=== PATIENT | male | born 1935 | race Caucasian/White ===

== ENCOUNTER → 2016-12-20 | Outpatient (CLI) | payer OTHER ==
[~2016-12-20] MED LIST: ALBU18002 INH; ASPEC325 PO; ASPI81TA28 PO; ATOR-26 PO; CALC600T9 PO; CLIN300C2 PO; DOCU100C31 PO; FLUT1INH INH; FNTTP75 TOP; GABA-112 PO; HYDR-3983 PO; HYDR12.55 PO; LAMO25TA PO; MAGN84TA PO; PANT40TA PO; POTA1POW PO; SPRIN/30 INH
[2016-12-20 13:20] LABS: ALT/SGPT 18 U/L (12-78); AST/SGOT 14 U/L (15-37); BLOOD UREA NITROGEN 21 mg/dl (7-18); BUN/CREATININE RATIO 25.1 (10-20); CARBON DIOXIDE 31 mmol/L (21-32); CHLORIDE 101 mmol/L (98-107); CHOLESTEROL 110 mg/dl (0-200); CREATININE 0.82 mg/dl (0.60-1.40); GLUCOSE 106 mg/dl (70-99); MAGNESIUM 2.2 mg/dl (1.8-2.4); POTASSIUM 3.8 mmol/L (3.5-5.1); SODIUM 138 mmol/L (136-145)
[2016-12-20 13:23] LABS: CHOLESTEROL/HDL RATIO 2.7; HDL CHOLESTEROL 41 mg/dl; LDL CHOLESTEROL CALCULATED 55 mg/dl; TRIGLYCERIDES 71 mg/dl (0-150); VERY LOW DENSITY LIPOPROT CALC 14 mg/dl
[2016-12-20 13:24] LABS: CALCIUM 9.2 mg/dl (8.5-10.1)
== END | disposition home or self-care (01) ==
LOC: C.LABMFLN 08:49
PROVIDERS: ATTEND Family Medicine
DX: I10 Essential (primary) hypertension (principal); E78.00 Pure hypercholesterolemia, unspecified; G40.909 Epilepsy, unspecified, not intractable, without status epilepticus; E83.42 Hypomagnesemia

== ENCOUNTER → 2017-02-06 | Outpatient (CLI) | payer OTHER ==
[~2017-02-06] VITALS: Ht 167.6 cm; Wt 92.7 kg
[~2017-02-06] MED LIST changes: +LACTATED RINGER'S 1000ML 1,000 ML IV SCH
[2017-02-06 10:54] VITALS: Ht 167.6 cm; Wt 92.7 kg
--- NOTE | 2017-02-06 11:44 | PAT Medication Instructions ---
Service Date Feb 06, 2017. Current Home Medication List Albuterol Sulfate (Proair Respiclick), 1-2 PUFFS INH Q4-6H Aspirin (Aspirin Ec), 81 MG PO QAM Atorvastatin (Lipitor), 80 MG PO HS Calcium Carbonate-Vitamin D (Calcium + D), 1 TAB PO BID Clindamycin Hcl (Cleocin), 600 MG PO UD Docusate Sodium (Docusate Sodium), 1 CAP PO HS Fentanyl (Fentanyl), 1 DOSE TOP Q2D Fluticasone Furoate-Vilanterol (Breo Ellipta), 1 PUFF INH HS Gabapentin (Neurontin), 100 MG PO TID Hydrochlorothiazide (Hydrochlorothiazide), 1 TAB PO QAM Hydrocodone/Acetaminophen 7.5MG/325MG ([place] 7.5MG/325MG), 1-2 TAB PO Q6H Lamotrigine (Lamictal), 50 MG PO BID Magnesium Lactate (Mag-Tab Sr), 1 TAB PO BID Pantoprazole (Protonix), 40 MG PO QAM Potassium Chloride Pwd (Klor-Con Pwd), 20 MEQ PO BID Tiotropium [place] (Spiriva Handihaler), 1 CAP INH QAM Medication Instructions For Your Scheduled Surgery Clindamycin Hcl (Cleocin), 600 MG PO UD (prior to dental procedures only) Fentanyl (Fentanyl), 1 DOSE TOP Q2D (avoid surgery site for patch placement prior to surgery) - Hold the following medications the morning of surgery: Potassium Chloride Pwd (Klor-Con Pwd), 20 MEQ PO BID Magnesium Lactate (Mag-Tab Sr), 1 TAB PO BID Hydrochlorothiazide (Hydrochlorothiazide), 1 TAB PO QAM Calcium Carbonate-Vitamin D (Calcium + D), 1 TAB PO BID - Take the following medications the morning of surgery with a sip of water: Tiotropium [place] (Spiriva Handihaler), 1 CAP INH QAM Pantoprazole (Protonix), 40 MG PO QAM Lamotrigine (Lamictal), 50 MG PO BID Gabapentin (Neurontin), 100 MG PO TID Albuterol Sulfate (Proair Respiclick), 1-2 PUFFS INH Q4-6H (bring with you to hospital morning of surgery; use if needed) Aspirin (Aspirin Ec), 81 MG PO QAM Hydrocodone/Acetaminophen 7.5MG/325MG ([place] 7.5MG/325MG), 1-2 TAB PO Q6H (okay to take up to 4 hours prior to surgery if needed) - Take the following medications as scheduled the night before surgery: Potassium Chloride Pwd (Klor-Con Pwd), 20 MEQ PO BID Magnesium Lactate (Mag-Tab Sr), 1 TAB PO BID Lamotrigine (Lamictal), 50 MG PO BID Gabapentin (Neurontin), 100 MG PO TID Fluticasone Furoate-Vilanterol (Breo Ellipta), 1 PUFF INH HS Docusate Sodium (Docusate Sodium), 1 CAP PO HS Calcium Carbonate-Vitamin D (Calcium + D), 1 TAB PO BID Atorvastatin (Lipitor), 80 MG PO HS Albuterol Sulfate (Proair Respiclick), 1-2 PUFFS INH Q4-6H (if needed) Hydrocodone/Acetaminophen 7.5MG/325MG ([place] 7.5MG/325MG), 1-2 TAB PO Q6H (if needed) If you have any questions please call us at [phone] or [phone] or [phone]
[2017-02-06 12:14] LABS: URINE APPEARANCE CLEAR (CLEAR); URINE BILIRUBIN NEG (NEG); URINE COLOR YELLOW; URINE NITRITE NEG (NEG); URINE PH 5.5 (4.5-7.5); UROBILINOGEN NEG (NEG); ZZUR CULT IF INDIC CLEAN CATCH NO
[2017-02-06 12:19] LABS: MANUAL MICROSCOPIC REQUIRED? NO; REVIEW REQ? NO
[2017-02-06 12:24] LABS: BASO % 0.3 %; BASO ABS # 0.02 K/uL (0-0.2); COMPLETE YES; EOS % 0.9 %; HEMATOCRIT 42.1 % (42-52); IG% 0.1 %; LYMPH % 20.5 %; LYMPH ABS # 1.53 K/uL (1.2-3.4); MEAN CELL VOLUME 93.3 fL (80-100); MEAN CORPUSCULAR HEMOGLOBIN 31.3 pg (25-34); MEAN CORPUSCULAR HGB CONC 33.5 g/dl (32-36); MEAN PLATELET VOLUME 9.8 fL (7.4-10.4); MONO % 10.8 %; NEUT % 67.4 %; PLATELET COUNT 222 K/uL (130-400); RED BLOOD COUNT 4.51 M/uL (4.7-6.1); WHITE BLOOD COUNT 7.48 K/uL (4.8-10.8)
[2017-02-06 12:30] LABS: PARTIAL THROMBOPLASTIN RATIO 1.1; PROTHROMBIN TIME (PATIENT) 10.7 SECONDS (9.0-12.0)
[2017-02-06 12:35] LABS: BUN/CREATININE RATIO 20.4 (10-20); CALCIUM 8.9 mg/dl (8.5-10.1); CREATININE 0.86 mg/dl (0.60-1.40)
--- NOTE | 2017-02-11 15:02 | HISTORY & PHYSICAL EXAMINATION ---
DATE OF ADMISSION: 02/24/2017 CHIEF COMPLAINT: Left hip pain. HISTORY OF PRESENT ILLNESS: Mr. Myrick is an 81-year-old male with a 1-1/2-year history of left hip pain. The patient rates his pain an 8/10. He has pain with his daily activities. He has limited standing and walking tolerance. Pain is worse with weightbearing. The patient ambulates with a cane. He has been taking narcotics with minimal relief. He has failed conservative treatment and is scheduled for left hip replacement. PAST MEDICAL HISTORY: Hypercholesterolemia, COPD, seizure disorder, acid reflux, aortic stenosis. He denies heart disease, diabetes or DVT. PAST SURGICAL HISTORY: Pacemaker, aortic valve repair, ORIF of left hand. SOCIAL HISTORY: The patient denies alcohol or tobacco use. He lives in a single cyndi home. He is and retired. FAMILY HISTORY: Negative for DVT. MEDICATIONS: Aspirin 81 mg daily, atorvastatin 80 mg daily, Breo Ellipta 100/25 mcg 1 puff daily, calcium 500 mg daily, clindamycin 300 mg per dental work, stool softener 100 mg daily, fentanyl 75 mcg, gabapentin 100 mg 3 times daily, hydrochlorothiazide 25 mg p.r.n., hydrocodone 7.5/325 q. 6 hours p.r.n., lamotrigine 25 mg 2 tablets twice daily, mag tab SR 84 mg 2 times daily, pantoprazole 40 mg daily, potassium chloride 10 mEq daily, ProAir inhaler p.r.n., Spiriva 18 mcg daily, Ventolin HFA 2 puffs p.r.n. ALLERGIES: CEFTIN, CEPHALOSPORINS, PENICILLIN, SULFA. REVIEW OF SYSTEMS: See HPI. Ten other systems reviewed, all negative. PHYSICAL EXAMINATION: VITAL SIGNS: Height 5 feet 5 inches. Weight 204 pounds. BMI is not calculated. GENERAL: This is a well-developed, well-nourished male who is alert and oriented x3. Mood and affect are appropriate. HEENT: Normocephalic, atraumatic. Mucous membranes are moist and intact. NECK: Supple without lymphadenopathy. HEART: Regular rate and rhythm without murmurs, rubs or gallops. LUNGS: Clear to auscultation without wheezes or rhonchi. ABDOMEN: Soft and nontender. Bowel sounds are equal and active. EXTREMITIES: No ecchymosis, redness or warmth. Thigh and calf are soft and nontender. Logroll of the hip reproduces pain in the groin. Range of motion is decreased. He is neurovascularly intact with +5/5 strength. X-RAY EXAMINATION: AP and lateral views show joint space narrowing and osteophyte formation. He has moderate irregularities of his femoral head. IMPRESSION: Degenerative joint disease, left hip. PLAN: The patient will be admitted for a left total hip arthroplasty. We will plan on aspirin for DVT prophylaxis. The patient is on chronic fentanyl and [place]. He will have [facility] for home physical therapy. PCP is Dr. Mijares.
--- NOTE | 2017-03-14 09:28 | CODING QUERY MEDICAL NECESSITY ---
SUPPORTING DIAGNOSIS NEEDED A supporting diagnosis is required for the test/procedure performed on this patient in order for us to be reimbursed by the patient's insurance. Please provide a supporting diagnosis for the following test/procedure listed below next to the test name along with your signature. *If there is no additional diagnosis for this patient that would support the following test/procedure please document that below next to the test/procedure. Test(s)/Procedure(s) that require a supporting diagnosis: * ([id number]) VITAMIN D ASSAY DIAGNOSIS: DATE OF SERVICE: 02/06/17 Provider Signature: Date: Thank you Buddy Hughes [facility] Information Management Once completed, please kindly fax back to [phone] For questions please call [phone]
== END | disposition home or self-care (01) ==
LOC: C.LAB 08:00 → EDSTATUS 11:15
PROVIDERS: ATTEND Orthopaedic Surgery
DX: Z01.812 Encounter for preprocedural laboratory examination (principal); Z01.810 Encounter for preprocedural cardiovascular examination

== ENCOUNTER 2017-04-04 04:56 | Inpatient (IN) | payer OTHER ==
[2017-03-17 11:11] VITALS: BMI 33.0
[~2017-04-04] VITALS: Ht 167.6 cm; Wt 92.7 kg
[2017-04-04] VITALS (10 sets, daily range): BP systolic 107–163; BP diastolic 55–88; PULSE 70–84; TEMP 36.4–37.1; O2SAT 90–96; Ht 167.6 cm; Wt 92.7 kg
[~2017-04-04 04:56] MED LIST changes: -ASPEC325 PO; -LACTATED RINGER'S 1000ML 1,000 ML IV SCH
[2017-04-04] MEDS ORDERED: LACTATED RINGER'S 1000ML 500 ML IV SCH (06:00)
[2017-04-04] MEDS ORDERED: ROPIVACAINE 5MG/ML 30 ML 150 MG, BUPIVACAINE/EPINEPHR 0.5% MPF 30 ML, KETOROLAC TROMETH... INFIL SCH ×7 (06:00)
[2017-04-04] MEDS ORDERED: LACTATED RINGER'S 1000ML IV SCH (06:00)
[2017-04-04] MEDS ORDERED: VANCOMYCIN INJ 1,400 MG in SODIUM CHLORIDE 0.9% 500ML 500 ML IV SCH (06:00)
[2017-04-04] MEDS ORDERED: LACTATED RINGER'S 1000ML 1,000 ML IV SCH (06:00)
[2017-04-04] MEDS ORDERED: GABAPENTIN 300 MG CAP PO SCH (06:00)
[2017-04-04] MEDS ORDERED: ACETAMINOPHEN 500 MG TAB PO SCH (06:00)
[2017-04-04] MEDS ORDERED: FAMOTIDINE 20 MG TAB PO SCH (06:00)
[2017-04-04] MEDS ORDERED: BUPIVACAINE 0.5 % 5 MG/1 ML PF 10ML VIAL ONE (06:26)
[2017-04-04] MEDS ORDERED: BACITRACIN 50000 UNIT VIAL ONE (06:28)
[2017-04-04] MEDS ORDERED: ORTHO JOINT ANESTHETIC ONE (06:28)
[2017-04-04] MEDS ORDERED: FENTANYL CITRATE INJ 50 MCG/1 ML 2 ML VIAL ONE (06:32)
[2017-04-04] MEDS ORDERED: MIDAZOLAM HCL 1 MG/ML 2ML VIAL ONE (06:32)
--- NOTE | 2017-04-04 06:39 | History and Physical ---
History & Physical Date Apr 04, 2017. Chief Complaint Osteoarthritis Left Hip History of Present Illness The patient is a 82 year old male with complaints of chronic left hip pain Past Medical/Surgical History Heart disease with pacemaker and stent, hyperlipidemia, COPD Additional History Hepatic Disease: No Endocrine Disorder: No Kidney Disease: No Hypertension: No Heart Disease: Yes Bleeding Tendencies: No Infectious Diseases: No Allergies Coded Allergies: Cefuroxime (Verified Allergy, Unknown, HIVES, 04/04/17) Cephalosporins (Verified Allergy, Unknown, HIVES, 04/04/17) Penicillins (Verified Allergy, Unknown, HIVES, 04/04/17) Sulfa Antibiotics (Verified Allergy, Unknown, HIVES, 04/04/17) Home Medications Scheduled Albuterol Sulfate (Proair Respiclick), 1-2 PUFFS INH Q4-6H Aspirin (Aspirin Ec), 81 MG PO QAM Atorvastatin (Lipitor), 80 MG PO HS Calcium Carbonate-Vitamin D (Calcium + D), 1 TAB PO BID Clindamycin Hcl (Cleocin), 600 MG PO UD Docusate Sodium (Docusate Sodium), 1 CAP PO HS Fentanyl (Fentanyl), 1 DOSE TOP Q2D Fluticasone Furoate-Vilanterol (Breo Ellipta), 1 PUFF INH HS Gabapentin (Neurontin), 100 MG PO TID Hydrochlorothiazide (Hydrochlorothiazide), 1 TAB PO QAM Hydrocodone/Acetaminophen 7.5MG/325MG ([place] 7.5MG/325MG), 1-2 TAB PO Q6H Lamotrigine (Lamictal), 50 MG PO BID Magnesium Lactate (Mag-Tab Sr), 1 TAB PO BID Pantoprazole (Protonix), 40 MG PO QAM Potassium Chloride Pwd (Klor-Con Pwd), 20 MEQ PO BID Tiotropium [place] (Spiriva Handihaler), 1 CAP INH QAM Physical Examination Skin: warm/dry, no rash Eyes: normal inspection, EOMI, sclerae normal ENT: normal ENT inspection, pharynx normal Head: normocephalic, atraumatic Neck: supple, no adenopathy, trachea midline Respiratory/Chest: lungs clear, normal breath sounds, no respiratory distress Cardiovascular: regular rate, rhythm, no edema, no murmur Abdomen / GI: normal bowel sounds, non tender Back: normal inspection Extremities: normal inspection, normal range of motion Neurologic/Psych: no motor/sensory deficits, alert, normal reflexes, oriented x 3 Diagnosis Osteoarthritis Left Hip ASA Classification: ASA Class II Plan of Treatment Left Total Hip Arthroplasty
--- NOTE | 2017-04-04 06:39 | History & Physical Bridge Note ---
H&P Re-Evaluation Bridge Note: I have examined the patient, reviewed the History & Physical and in the interval since the performance of the History & Physical I have noted the following changes of clinical significance: No changes noted
[2017-04-04] MEDS ORDERED: PROPOFOL IV EMULSION 10 MG/ML 20 ML VIAL IV ONE ×2 (07:57→08:55)
[2017-04-04] MEDS ORDERED: PHENYLEPHRINE 100MCG/ML 5ML SYR ONE (07:59)
[2017-04-04] MEDS ORDERED: EpHEDrine SULFATE INJ 50 MG/ML AMP IV PRN (08:00)
[2017-04-04] MEDS ORDERED: ATROPINE SULFATE 0.1 MG/ML 5ML SYR IV PRN (08:00)
[2017-04-04] MEDS ORDERED: ONDANSETRON INJ 2 MG/ML 2 ML VIAL IV PRN ×2 (08:00→09:45)
[2017-04-04] MEDS ORDERED: FENTANYL CITRATE INJ 50 MCG/1 ML 2 ML VIAL IV PRN (08:00)
--- NOTE | 2017-04-04 09:30 | DIAGNOSTIC IMAGING REPORT ---
LEFT HIP UNILATERAL 1 VIEW CLINICAL HISTORY: 82 years-old Male presenting with LT ANTERIOR HIP. TECHNIQUE: 3 fluoroscopic spot image(s) obtained as part of intraoperative procedure. COMPARISON: 01/14/2017. FINDINGS/IMPRESSION: Acetabular prosthetic component initially placed with subsequent femoral head neck and stem prosthesis. Anatomic alignment. No gross hardware complication. Please see surgical report for further details. Fluoroscopy dosage (mGy): Not available. Fluoroscopy time: 45 seconds. Number of fluoroscopic spot images: 3. Electronically signed by: Walter Lester M.D. 04/04/2017 9:29 AM Dictated Date/Time: 04/04/2017 9:28 AM
--- NOTE | 2017-04-04 09:42 | [facility] Post Operative Brief Note ---
Immediate Operative Summary Operative Date Apr 04, 2017. Pre-Operative Diagnosis Left Hip Degenerative Joint Disease Post-Operative Diagnosis Left Hip Degenerative Joint Disease Procedure(s) Performed Left Total Hip Arthroplasty, Direct Anterior Approach Surgeon Dr. Pires Ecology Teacher Surgeon(s) Eric Peoples PA-C Estimated Blood Loss 250ML Findings as above Specimens A: Left Femoral Head Complication(s) None Disposition Recovery Room / PACU
[2017-04-04] MEDS ORDERED: METOCLOPRAMIDE HCL INJ 5 MG/ML 2 ML VIAL IV PRN (09:45)
[2017-04-04] MEDS ORDERED: MAGNESIUM HYDROXIDE SUSP 30 ML UDC PO PRN (09:45)
[2017-04-04] MEDS ORDERED: FENTANYL TOP SCH (09:45)
[2017-04-04] MEDS ORDERED: BISACODYL 10 MG SUPP PR PRN (09:45)
[2017-04-04] MEDS ORDERED: ALBUTEROL HFA INHALER 18 GM INH PRN (09:45)
[2017-04-04] MEDS ORDERED: SOD PHOSPHATE/SOD BIPHOSPHATE ENEMA 132 ML BTL PR PRN (09:45)
[2017-04-04] MEDS ORDERED: EpHEDrine SULFATE 50MG/5ML SYR ONE (09:56)
--- NOTE | 2017-04-04 10:06 | OPERATIVE REPORT ---
DATE OF OPERATION: 04/04/2017 PREOPERATIVE DIAGNOSIS: Primary osteoarthritis of the left hip. POSTOPERATIVE DIAGNOSIS: Same. PROCEDURE: Left total hip arthroplasty. SURGEON: Dr. Jerome Pires. FIELD COORDINATOR: Reza Peoples PA-C, whose assistance was necessary for positioning of the leg and helping with retraction. ANESTHESIA: Spinal with sedation. COMPLICATIONS: None. CONDITION: Stable to PACU. IMPLANTS USED: I used a [employer]omet Taperloc left total hip arthroplasty system with a size 52-mm G7 cup, a 20-mm screw, a 36-mm E-poly liner, a size 13 high offset Taperloc pressfit stem and a 36-mm -3 ceramic head. INDICATIONS: Braden is a pleasant 82-year-old male who presented to my office with chronic left groin pain. X-rays and clinical examination were diagnostic for primary osteoarthritis of the left hip. After failing conservative treatment, he elected to undergo a left total hip arthroplasty. DESCRIPTION OF PROCEDURE: On 04/04/2017, he arrived at [facility] for the above procedure. He was seen in the preoperative holding area and the operative extremity was identified and signed. He was given preoperative antibiotics and a spinal anesthetic. He was taken back to the operating room, laid on the table in supine position and put under basic sedation. The left leg was put out to be Purist leg positioner. The left hip was then prepped and draped in sterile fashion. Time-out was done and the patient and operative extremity was properly identified. An anterior approach was used for this case. A significant portion of the case was done under fluoroscopy. Incision was made over the tensor fascia. Dissection was taken down to the tensor fascia and the tensor muscle was retracted laterally and the sartorius was retracted medially. The circumflex vessels were ligated. The reflected head of the rectus was slightly teased off the anterior capsule and the hip was exposed. The capsule was then released and tagged for later closure. The femoral neck was resected and the head was removed. The acetabulum was then exposed. Sequential reaming up to a size 51 reamer was done. A 52-mm cup was then impacted into place. I was able to get a good pressfit and a single 20-mm screw was placed. A 36-mm E-poly liner was then snapped into place. The proximal femur was then exposed. Sequential broaching up to a size 13 broach was done. A high offset trunnion and a -3 head were used. The hip was reduced and multiple fluoroscopic images were taken and I was happy with the overall alignment. The hip was then dislocated. The final 13 Taperloc high offset stem was impacted into place followed by a 36-mm -3 ceramic head. I did not think a -6 head would give me enough stability, although we looked a little bit long on the x-rays. The capsule was then closed with #1 Vicryl suture. The entire wound was irrigated with 3 liters of normal saline solution with bacitracin. The surrounding soft tissues were injected with 100 mL of an orthopedic pain control cocktail. The fascia was then closed with #1 Vicryl in a running fashion. Skin was closed with 2-0 Vicryl, #0 Prolene suture and a Prineo dressing. He was then taken to the postanesthesia care unit in stable condition and he tolerated the procedure well. I attest to the content of the Intraoperative Record and any orders documented therein. Any exception s are noted below.
--- NOTE | 2017-04-04 10:12 | Anesthesiology Progress Note ---
Anesthesia Post Op Note Date & Time Apr 04, 2017 at 10:10 Vital Signs Pain Intensity: 0 Vital Signs Past 12 Hours Date Time Temp Pulse Resp B/P (MAP) Pulse Ox O2 Delivery O2 Flow Rate FiO2 04/04/17 10:05 77 18 120/76 97 Oxymask 5 04/04/17 09:55 67 18 112/71 96 Oxymask 10 04/04/17 09:49 36.2 78 16 92/68 96 Oxymask 10 04/04/17 05:35 37.1 84 20 163/88 93 Room Air Notes Mental Status: alert / awake / arousable, participated in evaluation Pt Amnestic to Procedure: Yes Nausea / Vomiting: adequately controlled Pain: adequately controlled Airway Patency, RR, SpO2: stable & adequate BP & HR: stable & adequate Hydration State: stable & adequate Neuraxial Anesthesia: was administered, sensory block is resolving Anesthetic Complications: no major complications apparent Anesthetic Complications: patient with soreness over left chest. Discomfort reproducible with palpation over pectoralis muscle. Suspect discomfort secondary to lateral positioning. No accompanying sensation changes in upper left extremity.
--- NOTE | 2017-04-04 11:35 | DIAGNOSTIC IMAGING REPORT ---
LEFT PELVIS/UNILATERAL HIP 1 VIEW CLINICAL HISTORY: 82 years-old Male presenting with left hip osteoarthritis status post left hip arthroplasty. TECHNIQUE: Frontal and frog-leg lateral views of the left hip were obtained. COMPARISON: Fluoroscopy from 04/04/2017. FINDINGS: Postsurgical changes of total left hip arthroplasty. No acute fracture or malalignment. Surgical drain projects over the left hip. Regional soft tissue emphysema, expected postsurgical findings. Atherosclerosis. Right hip congruent. IMPRESSION: Expected postoperative appearance status post total left hip arthroplasty. Electronically signed by: Walter Lester M.D. 04/04/2017 11:34 AM Dictated Date/Time: 04/04/2017 11:32 AM
[2017-04-04] MEDS: SODIUM CHLORIDE 0.9% 1000ML 1,000 ML IV SCH ×2 (11:53→21:09)
[2017-04-04] MEDS: HYDROCODONE/ACETAMOPHEN 5/325MG TAB PO PRN (11:57)
[2017-04-04] MEDS ORDERED: ALBUTEROL HFA INHALER 8.5 GM INH PRN (12:00)
[2017-04-04] MEDS: GABAPENTIN 100 MG CAP PO SCH ×2 (13:42→21:10)
[2017-04-04] MEDS: MoRPHine SULFATE 2 MG/ML CARP IV PRN ×2 (13:46→16:38)
[2017-04-04] MEDS: CHECK FENTANYL PATCH PLACEMENT SCH ×2 (16:09→23:36)
[2017-04-04] MEDS: CLINDAMYCIN IV 600 MG in DEXTROSE 5% 50ML 50 ML IV SCH ×2 (16:35→23:25)
[2017-04-04] MEDS: KETOROLAC TROMETHAMINE 15 MG/ML VIAL IV. SCH ×2 (18:55→23:25)
[2017-04-04] MEDS ORDERED: MAGNESIUM LACTATE PO SCH (21:00)
[2017-04-04] MEDS: ASPIRIN 325 MG ECTAB PO SCH (21:10)
[2017-04-04] MEDS: ATORVASTATIN 40 MG TAB PO SCH (21:11)
[2017-04-04] MEDS: CALCIUM 600MG + VIT D 400 IU TAB PO SCH (21:12)
[2017-04-04] MEDS: DOCUSATE SODIUM 100 MG CAP PO SCH (21:12)
[2017-04-04] MEDS: POTASSIUM CHLORIDE PWD 20 MEQ PACK PO SCH (21:13)
[2017-04-04] MEDS: SENNA 8.6 MG TAB PO SCH (21:14)
[2017-04-05] MEDS: HYDROCODONE/ACETAMOPHEN 5/325MG TAB PO PRN ×2 (00:51→23:24)
[2017-04-05] MEDS: MoRPHine SULFATE 2 MG/ML CARP IV PRN ×2 (01:45→03:42)
[2017-04-05 03:36] VITALS: BP 105/63; PULSE 76; TEMP 36.8; O2SAT 90
[2017-04-05] MEDS: KETOROLAC TROMETHAMINE 15 MG/ML VIAL IV. SCH ×4 (05:47→23:23)
[2017-04-05] MEDS: SODIUM CHLORIDE 0.9% 1000ML 1,000 ML IV SCH (05:47)
[2017-04-05 06:25] LABS: BASO % 0.1 %; BASO ABS # 0.01 K/uL (0-0.2); COMPLETE YES; EOS % 0.5 %; HEMATOCRIT 31.5 % (42-52); IG% 0.3 %; LYMPH % 11.1 %; LYMPH ABS # 1.34 K/uL (1.2-3.4); MEAN CELL VOLUME 92.4 fL (80-100); MEAN CORPUSCULAR HEMOGLOBIN 30.5 pg (25-34); MEAN PLATELET VOLUME 9.7 fL (7.4-10.4); MONO % 10.8 %; NEUT % 77.2 %; PLATELET COUNT 172 K/uL (130-400); RED BLOOD COUNT 3.41 M/uL (4.7-6.1); WHITE BLOOD COUNT 12.12 K/uL (4.8-10.8)
[2017-04-05 07:02] LABS: BUN/CREATININE RATIO 21.2 (10-20); CALCIUM 8.2 mg/dl (8.5-10.1); CREATININE 0.86 mg/dl (0.60-1.40); POTASSIUM 3.7 mmol/L (3.5-5.1)
[2017-04-05] MEDS ORDERED: ASPEC325 PO (07:02)
--- NOTE | 2017-04-05 07:03 | Discharge Instructions ---
Discharge Instructions Date of Service Apr 05, 2017. Admission Reason for Admission: Left Hip Osteoarthritis Discharge Discharge Diagnosis / Problem: Left Total Hip Discharge Goals Goal(s): Decrease discomfort, Improve function Activity Recommendations Activity Limitations: as noted below . Instructions / Follow-Up Instructions / Follow-Up Activity and Therapy Recommendations: * If you are using [facility] then Physical Therapy will be provided until they feel you are ready to start Outpatient Physical Therapy. If you are not using a Home Health agency then Outpatient Physical Therapy should start about 3-5 days from your day of surgery. Therapy will last about 3-6 weeks * You were shown a series of exercises in the hospital. Do these exercises three times each day including the exercises you were shown in physical therapy. * Get up and walk several times each day.~ For the first four weeks, try not to stand or walk for more than one hour at a time. If you do stand or walk for more than one hour, you will not hurt anything, but your leg will likely swell.~ ~ * As you feel comfortable, you may change from the walker or crutches to a cane and~then to independent walking. Medications: * Narcotic You will likely be sent home from the hospital with a prescription for the narcotic pain medication that worked best throughout your stay. * Aspirin Most patients will be required to take Aspirin 325mg twice a day for 6 weeks after surgery. This is obtained [id number] and a prescription is not necessary. * Other medications may be prescribed for specific circumstances. If you have any questions, please call the office at . * Resume previous home medications unless otherwise instructed TEDs/Elastic Stockings: The white elastic stockings help limit swelling and prevent blood clots from forming in your legs. The more you wear them, the more they work. Wear them for six weeks. Dressing Care: You will likely have a Prineo dressing covering your incision. This looks like a glued on clear mesh dressing. Do not remove this dressing until you follow- up in my office in 2-3 weeks. Its pretty hard to peel it off. You may leave the Prineo dressing uncovered or cover it if it is draining a little bit. No further dressing care is required Showering: You may shower 3 days from the day of surgery. Leave the Prineo dressing intact and let the soapy shower water run over it. Do not scrub or soak the dressing or the incision. Things To Watch For: * Drainage from the incision site that occurs more than one week after your surgery. * Increased redness at the incision site. * Fever above 102 degrees Fahrenheit. * Unusual chest pain or shortness of breath. * Call [facility] at with any of the above problems Follow-Up Visit: Follow-up with Dr. Pires 2-3 weeks after your day of surgery. An appointment was probably scheduled when you signed-up for surgery in the office. If you have any questions call Office Instructions: More detailed instructions as well as Frequently Asked Questions were provided in a folder by our office when you signed-up for surgery. Please review these instructions when you get home. If you have any further questions or concerns, please feel free to call the office at [phone] Current Hospital Diet Patient's current hospital diet: Regular Diet Discharge Diet Recommended Diet: Regular Diet Procedures Procedures Performed: Left Total Hip Arthroplasty, Direct Anterior Approach Pending Studies Studies pending at discharge: no Medical Emergencies . Who to Call and When: Medical Emergencies: If at any time you feel your situation is an emergency, please call [phone] immediately. . Non-Emergent Contact Non-Emergency issues call your: Surgeon Call Non-Emergent contact if: wound has increased drainage, wound has increased redness . "Provider Documentation" section prepared by Jerome Pires. . VTE Core Measure Inpt VTE Proph given/why not?: Other Anticoagulation (Aspirin 325 twice a day for 6 weeks)
[2017-04-05] MEDS: CHECK FENTANYL PATCH PLACEMENT SCH ×3 (07:24→23:15)
[2017-04-05 07:45] VITALS: O2SAT 92
[2017-04-05 07:53] VITALS: BP 124/74; PULSE 69; TEMP 36.7; O2SAT 91
[2017-04-05] MEDS ORDERED: FENTANYL PATCH REMOVE & WASTE SCH (07:59)
[2017-04-05] MEDS ORDERED: FENTANYL 75 MCG/HR TDSY TD SCH (08:00)
[2017-04-05] MEDS: HYDROCHLOROTHIAZIDE 25 MG TAB PO SCH (08:12)
[2017-04-05] MEDS: DOCUSATE SODIUM 100 MG CAP PO SCH ×2 (08:12→20:56)
[2017-04-05] MEDS: CALCIUM 600MG + VIT D 400 IU TAB PO SCH ×2 (08:12→20:56)
[2017-04-05] MEDS: ASPIRIN 325 MG ECTAB PO SCH ×2 (08:12→20:56)
[2017-04-05] MEDS: MULTIVITAMIN TAB PO SCH (08:13)
[2017-04-05] MEDS: TIOTROPIUM BROMIDE 5 PUFF/90 MCG INH INH SCH (08:13)
[2017-04-05] MEDS: PANTOprazole SOD 40 MG TAB PO SCH (08:13)
[2017-04-05] MEDS: GABAPENTIN 100 MG CAP PO SCH ×3 (08:13→20:57)
--- NOTE | 2017-04-05 08:13 | PROGRESS NOTE ---
DATE: 04/05/2017 CHIEF COMPLAINT: Status post left total hip arthroplasty, postop day #1. PROGRESS: Braden was seen and examined at bedside today. He was up and ambulating around the nurses' station last night. He was having a lot of pain in his hip. This is to be expected. He is on chronic narcotic pain medications at home as well. He otherwise has no complaints. PHYSICAL EXAMINATION: LEFT HIP: There was a hematoma forming posterior to the incision. The dressing is clean and dry. The drain is to suction. His leg lengths appear equal. He has active dorsiflexion and plantarflexion of his left ankle with femoral nerve intact. LABORATORY DATA: He has an H&H today of 10.4 and 31.5. His glucose is 112. His vital signs are all stable on room air and he is voiding on his own. X-rays postoperatively of the left hip show the prosthesis to be in anatomical alignment. There is no evidence of fracture, dislocation or loosening. IMPRESSION: Status post left total hip arthroplasty, postop day #1. PLAN: At this point, he is doing as well as expected. We will try to keep his pain under control with morphine and the hydrocodone. He does not want any more pain medications than he is currently getting. He will continue to work with physical therapy today and he is planning on being discharged home tomorrow. Case management is working on setting up a home health agency.
[2017-04-05] MEDS: POTASSIUM CHLORIDE PWD 20 MEQ PACK PO SCH ×2 (08:14→20:55)
[2017-04-05] MEDS ORDERED: HYDROCHLOROTHIAZIDE 25 MG TAB PO SCH (09:00)
[2017-04-05 11:37] VITALS: BP 108/66; PULSE 73; TEMP 36.4; O2SAT 93
[2017-04-05 15:17] VITALS: BP 141/85; PULSE 70; TEMP 36.8; O2SAT 92
[2017-04-05] MEDS: ATORVASTATIN 40 MG TAB PO SCH (20:56)
[2017-04-05] MEDS: SENNA 8.6 MG TAB PO SCH (20:56)
[2017-04-05] MEDS ORDERED: FLUTICASONE FUROATE-VILANTEROL 30 PUFFS/INHALER INH INH SCH (21:00)
[2017-04-05 23:05] VITALS: BP 145/77; PULSE 80; TEMP 37; O2SAT 92
[2017-04-06] MEDS: KETOROLAC TROMETHAMINE 15 MG/ML VIAL IV. SCH (05:57)
[2017-04-06 06:13] VITALS: BP 127/78; PULSE 74; TEMP 36.6; O2SAT 92
[2017-04-06] MEDS: CHECK FENTANYL PATCH PLACEMENT SCH (07:16)
[2017-04-06] MEDS: TIOTROPIUM BROMIDE 5 PUFF/90 MCG INH INH SCH (07:17)
[2017-04-06] MEDS: HYDROCHLOROTHIAZIDE 25 MG TAB PO SCH (07:18)
[2017-04-06] MEDS: DOCUSATE SODIUM 100 MG CAP PO SCH (07:18)
[2017-04-06] MEDS: PANTOprazole SOD 40 MG TAB PO SCH (07:18)
[2017-04-06] MEDS: POTASSIUM CHLORIDE PWD 20 MEQ PACK PO SCH (07:19)
[2017-04-06] MEDS: ASPIRIN 325 MG ECTAB PO SCH (07:19)
[2017-04-06] MEDS: MULTIVITAMIN TAB PO SCH (07:19)
[2017-04-06] MEDS: CALCIUM 600MG + VIT D 400 IU TAB PO SCH (07:19)
[2017-04-06] MEDS: GABAPENTIN 100 MG CAP PO SCH (07:19)
[2017-04-06 07:47] VITALS: BP 127/78; PULSE 74; TEMP 36.6; O2SAT 92
--- NOTE | 2017-04-06 08:30 | PROGRESS NOTE ---
DATE: 04/06/2017 CHIEF COMPLAINT: Status post left total hip arthroplasty, postop day #2. PROGRESS: Braden was seen and examined at bedside today. Overall, he is doing very well. He was up and ambulating with physical therapy. His pain is controlled and he has no complaints. PHYSICAL EXAMINATION: LEFT HIP: The dressing has been changed. The incision is clean and dry. The drain has been pulled. He is neurovascularly intact. Leg lengths were equal. IMPRESSION: Status post left total hip arthroplasty, postop day #2. PLAN: At this point, he seems to be doing very well. A referral has been made for [facility]. We will discharge him to home later this morning.
--- NOTE | 2017-04-06 08:44 | DISCHARGE SUMMARY ---
DISCHARGE DIAGNOSIS: Primary osteoarthritis of the left hip. PROCEDURE: Left total hip arthroplasty through an anterior approach on 04/04/[address] Jerome Pires. DISCHARGE INSTRUCTIONS: 1. Aspirin 325 mg twice a day for 6 weeks. 2. Hydrocodone 7.5/325 one or two tabs every 6 hours as needed for pain. 3. Fentanyl patch 75 mcg every other day. 4. Albuterol 1-2 puffs every 4-6 hours. 5. Lipitor 80 mg at night. 6. Cleocin 600 mg every other day. 7. Colace 100 mg at night. 8. Breo 1 puff at night. 9. Neurontin 100 mg 3 times a day. 10. Hydrochlorothiazide 12.5 mg daily. 11. Lamictal 50 mg twice a day. 12. Magnesium 84 mg twice a day. 13. Protonix 40 mg daily. 14. Klor-Con 20 mEq twice a day. 15. Spiriva 1 cap daily. 16. May shower starting tomorrow. 17. Follow up with Dr. Pires in 2 weeks. 18. Call the office of Dr. Pires with any questions or concerns. HOSPITAL COURSE: Braden is a pleasant 82-year-old male who presented to my office with complaints of chronic left hip pain. X-rays and clinical examination were diagnostic for primary osteoarthritis of the left hip. After failing conservative treatment, he elected to undergo a left total hip arthroplasty. On 04/04/2017, he arrived at [facility] and underwent a left total hip arthroplasty through an anterior approach without complications. Postoperatively, he was started on aspirin 325 mg twice a day for DVT prophylaxis. His hospital course was uneventful. On postop day #1, his H&H was stable at 10.4 and 31.5. He was able to ambulate fairly well with physical therapy. He was having a lot of pain, but it was controlled with the oral pain medications. On postop day #2, his pain was much improved. The dressing was changed and the drain was pulled. He continued to work well with physical therapy and he was subsequently discharged to home with [facility] in the above instructions.
== END 2017-04-06 09:41 | disposition home health service (06) | DRG 470 ==
LOC: C.ACU 04:56 → C.3E 06:05 → ENRESERV 10:09
PROVIDERS: ADMIT Orthopaedic Surgery; ATTEND Orthopaedic Surgery
PROC: 0SRB04Z Replacement of Left Hip Joint with Ceramic on Polyethylene Synthetic Substitute, Open Approach (ICD-10-PCS; principal; 2017-04-04 07:00)
DX: M16.12 Unilateral primary osteoarthritis, left hip (principal); J44.9 Chronic obstructive pulmonary disease, unspecified; E78.5 Hyperlipidemia, unspecified; I51.9 Heart disease, unspecified; Z79.899 Other long term (current) drug therapy; Z79.82 Long term (current) use of aspirin; Z95.5 Presence of coronary angioplasty implant and graft; Z95.0 Presence of cardiac pacemaker

== ENCOUNTER → 2017-07-31 | Outpatient (CLI) | payer OTHER ==
[~2017-07-31] MED LIST changes: +ASPEC325 PO; -ASPI81TA28 PO
[2017-07-31 12:47] LABS: BASO % 0.2 %; BASO ABS # 0.02 K/uL (0-0.2); COMPLETE YES; EOS % 1.9 %; HEMATOCRIT 42.1 % (42-52); IG% 0.2 %; LYMPH % 16.9 %; LYMPH ABS # 1.58 K/uL (1.2-3.4); MEAN CELL VOLUME 90.9 fL (80-100); MEAN CORPUSCULAR HEMOGLOBIN 30.2 pg (25-34); MEAN CORPUSCULAR HGB CONC 33.3 g/dl (32-36); MEAN PLATELET VOLUME 9.8 fL (7.4-10.4); MONO % 10.2 %; NEUT % 70.6 %; PLATELET COUNT 231 K/uL (130-400); RED BLOOD COUNT 4.63 M/uL (4.7-6.1); WHITE BLOOD COUNT 9.33 K/uL (4.8-10.8)
[2017-07-31 13:00] LABS: ALT/SGPT 17 U/L (12-78); AST/SGOT 19 U/L (15-37); BLOOD UREA NITROGEN 15 mg/dl (7-18); BUN/CREATININE RATIO 18.6 (10-20); CALCIUM 8.7 mg/dl (8.5-10.1); CARBON DIOXIDE 35 mmol/L (21-32); CHLORIDE 98 mmol/L (98-107); CREATININE 0.83 mg/dl (0.60-1.40); GLUCOSE 112 mg/dl (70-99); POTASSIUM 3.8 mmol/L (3.5-5.1); SODIUM 133 mmol/L (136-145)
[2017-07-31 13:03] LABS: ALKALINE PHOSPHATASE 96 U/L (45-117); CHOLESTEROL 104 mg/dl (0-200); CHOLESTEROL/HDL RATIO 2.4; HDL CHOLESTEROL 43 mg/dl; LDL CHOLESTEROL CALCULATED 45 mg/dl; TRIGLYCERIDES 78 mg/dl (0-150); VERY LOW DENSITY LIPOPROT CALC 16 mg/dl
== END | disposition home or self-care (01) ==
LOC: C.LABMFLN 10:03
PROVIDERS: ATTEND Family Medicine
DX: E78.00 Pure hypercholesterolemia, unspecified (principal); M16.12 Unilateral primary osteoarthritis, left hip; I10 Essential (primary) hypertension; I35.9 Nonrheumatic aortic valve disorder, unspecified

== ENCOUNTER → 2018-01-05 | Outpatient (CLI) | payer OTHER ==
[2018-01-05 12:59] LABS: BASO % 0.3 %; BASO ABS # 0.02 K/uL (0-0.2); EOS % 2.1 %; EOS ABS # 0.15 K/uL (0-0.5); HEMATOCRIT 42.1 % (42-52); HEMOGLOBIN 13.8 g/dL (14.0-18.0); IG# 0.01 K/uL (0.00-0.02); LYMPH % 22.9 %; LYMPH ABS # 1.61 K/uL (1.2-3.4); MEAN CELL VOLUME 92.1 fL (80-100); MEAN CORPUSCULAR HEMOGLOBIN 30.2 pg (25-34); MEAN CORPUSCULAR HGB CONC 32.8 g/dl (32-36); MEAN PLATELET VOLUME 9.6 fL (7.4-10.4); MONO % 10.5 %; MONO ABS # 0.74 K/uL (0.11-0.59); NEUT % 64.1 %; NEUT ABS # 4.51 K/uL (1.4-6.5); PLATELET COUNT 230 K/uL (130-400); RED CELL DISTRIBUTION WIDTH CV 13.2 % (11.5-14.5); WHITE BLOOD COUNT 7.04 K/uL (4.8-10.8)
[2018-01-05 13:24] LABS: ALBUMIN 3.5 gm/dl (3.4-5.0); ALT/SGPT 19 U/L (12-78); AST/SGOT 21 U/L (15-37); BLOOD UREA NITROGEN 12 mg/dl (7-18); CALCIUM 8.5 mg/dl (8.5-10.1); CARBON DIOXIDE 32 mmol/L (21-32); CREATININE 0.91 mg/dl (0.60-1.40); GLUCOSE 96 mg/dl (70-99); POTASSIUM 3.6 mmol/L (3.5-5.1); SODIUM 137 mmol/L (136-145)
[2018-01-05 13:27] LABS: ALKALINE PHOSPHATASE 94 U/L (45-117); CHOLESTEROL 102 mg/dl (0-200); LDL CHOLESTEROL CALCULATED 41 mg/dl
== END | disposition home or self-care (01) ==
LOC: C.LABMFLN 08:51
PROVIDERS: ATTEND Family Medicine
DX: E78.00 Pure hypercholesterolemia, unspecified (principal); I35.9 Nonrheumatic aortic valve disorder, unspecified; I10 Essential (primary) hypertension